=== PATIENT | female | born 1990 | race Two or more races ===

== ENCOUNTER → 2016-10-27 | Outpatient (REF) | payer BC | LOC: M SFHCWAGY 09:28 | PROVIDERS: ATTEND Nurse Practitioner Women's Health | DX: Z12.4 Encounter for screening for malignant neoplasm of cervix (principal) ==

== ENCOUNTER → 2017-01-27 | Outpatient (CLI) | payer BC ==
--- NOTE | 2017-01-27 15:07 | REP ---
Clinical: Menorrhagia and breakthrough bleeding on oral contraception. Technique: Transabdominal pelvic ultrasound followed by transvaginal examination for better evaluation of the endometrium and adnexa with color Doppler evaluation of the ovaries. Findings: Bladder is unremarkable and measures 3.9 x 6.6 x 1.6 cm . Normal anteverted uterus deviated to the right measures 6.9 x 2.7 x 3.5 cm . The endometrial complex measures 3.0 mm thickness. No discrete uterine or endometrial abnormalities are appreciated. Bilateral ovaries are normal in appearance and vascularity without evidence for torsion. Right ovary measures 3.2 x 1.9 x 1.6 cm ; R I = 0.54 . Left ovary measures 3.1 x 1.7 x 1.8 cm ; R I = 0.54 . No pelvic fluid or adnexal mass lesion . Impression: 1. normal pelvic ultrasound
== END ==
LOC: M WHC 13:58
PROVIDERS: ATTEND Nurse Practitioner Women's Health
DX: N92.1 Excessive and frequent menstruation with irregular cycle (principal)

== ENCOUNTER → 2017-07-14 | Outpatient (REF) | payer BC ==
[2017-07-14 19:06] LABS: TESTOSTERONE 38 NG/DL (14-76)
== END ==
LOC: M LAB REF 16:52
DX: E28.2 Polycystic ovarian syndrome (principal)
CPT/HCPCS: 84403

== ENCOUNTER → 2018-07-18 | Outpatient (REF) | payer BC ==
[2018-07-18 20:44] LABS: INFLUENZA A AMPLIFICATION NEGATIVE (NEGATIVE); INFLUENZA B AMPLIFICATION NEGATIVE (NEGATIVE)
== END ==
LOC: M LAB REF 19:15
PROVIDERS: ATTEND Physician Assistant
DX: J11.1 Influenza due to unidentified influenza virus with other respiratory manifestations (principal)

== ENCOUNTER → 2019-02-25 | Outpatient (REF) | payer BC ==
[2019-02-25 12:53] LABS: HEMOGLOBIN A1c 5.8 %
[2019-02-25 13:09] LABS: ALBUMIN 3.5 GM/DL (3.2-5.2); ALT/SGPT 41 U/L (12-78); BILIRUBIN,TOTAL 0.2 MG/DL (0.2-1.0); BLOOD UREA NITROGEN 14 MG/DL (7-18); CARBON DIOXIDE LEVEL 24 MEQ/L (21-32); CHLORIDE LEVEL 102 MEQ/L (98-107); CHOLESTEROL LEVEL 207 MG/DL (<200); CHOLESTEROL RISK RATIO 3.184 (<5); CREATININE FOR GFR 0.76 MG/DL (0.55-1.30); GLOMERULAR FILTRATION RATE > 60.0 (>60); GLUCOSE, FASTING 83 MG/DL (70-100); HCG, SERUM QUALITATIVE NEGATIVE (NEGATIVE); HDL CHOLESTEROL 65 MG/DL (>40); LDL CHOLESTEROL 114 MG/DL (<100); NON-HDL-C 142 MG/DL; POTASSIUM SERUM 4.7 MEQ/L (3.5-5.1); SODIUM LEVEL 135 MEQ/L (136-145); TOTAL PROTEIN 7.8 GM/DL (6.4-8.2); TRIGLYCERIDES LEVEL 138 MG/DL (<150)
== END ==
LOC: M LABDRAW1 11:41
PROVIDERS: ATTEND Student in an Organized Health Care Education/Training Program
DX: F34.1 Dysthymic disorder (principal); F41.1 Generalized anxiety disorder

== ENCOUNTER → 2019-04-18 | Outpatient (REF) | payer BC | LOC: M PLALAB 09:08 | PROVIDERS: ATTEND Nurse Practitioner Women's Health | DX: Z12.4 Encounter for screening for malignant neoplasm of cervix (principal) | CPT/HCPCS: 87624; G0123 ==

== ENCOUNTER → 2019-04-24 | Outpatient (CLI) | payer BC ==
--- NOTE | 2019-04-24 19:20 | REP ---
PELVIS ULTRASOUND: Real-time sonographic evaluation of the pelvis performed. Transabdominal and endovaginal technique is utilized. The bladder measures 9.4 x 5.1 x 7.8 cm. Uterus measures 6.6 x 2.5 x 4.0 cm. Endometrial thickness is 3 mm. There appears to be an anterior uterine fibroid, 7 mm in diameter. Ovaries are normal in size and echotexture, right ovary measuring 3.0 x 2.0 x 1.7 cm and left ovary 2.4 x 2.0 x 1.8 cm. There is no adnexal mass or free fluid. No torsion is seen, with blood flow seen in each ovary with duplex Doppler evaluation. IMPRESSION: Subcentimeter fibroid in the anterior myometrium. Otherwise negative pelvic ultrasound. No adnexal mass or free fluid. Unreviewed
== END ==
LOC: M RAD 17:32
PROVIDERS: ATTEND Nurse Practitioner Women's Health
DX: D25.9 Leiomyoma of uterus, unspecified (principal)

== ENCOUNTER → 2020-02-03 | Outpatient (CLI) | payer BC ==
[~2020-02-03] MED LIST: ALBU8.5H; BRIN10TA4; METF500T13; PRAM1TAB7
[2020-02-03 16:04] LABS: HEMOGLOBIN A1c 6.3 %
== END ==
LOC: M PLALAB 10:09
PROVIDERS: ATTEND Obstetrics & Gynecology
DX: N97.9 Female infertility, unspecified (principal)

== ENCOUNTER → 2020-02-12 | Outpatient (CLI) | payer BC ==
[~2020-02-12] MED LIST changes: +ISOVUE-370 76% 100ML VIAL As Ordered ONE
--- NOTE | 2020-02-19 07:49 | REP ---
HYSTEROSALPINGOGRAM The procedure was performed by CLARENCE Alcantara, with the attending energy analyst, under the direct supervision of Dr. Jacobs. Images were reviewed with Dr. Jacobs prior to dictation. FINDINGS: The endometrium was cannulated, and contrast was injected by the attending energy analyst. Fluoroscopic spot films were acquired along the way. Fluoroscopic spot radiographs document filling of a normal endometrial cavity. There is normal fallopian tube opacification, and bilateral tube patency was documented. IMPRESSION: Normal hysterosalpingogram with bilateral tubal patency. 0.2 minutes of fluoroscopy time was utilized for this exam. DAGOBERTO
== END ==
LOC: M RADPRO 11:24
PROVIDERS: ATTEND Obstetrics & Gynecology
DX: N97.9 Female infertility, unspecified (principal); E28.2 Polycystic ovarian syndrome
CPT/HCPCS: 58340; 74740; Q9967

== ENCOUNTER 2020-02-14 12:05 | Emergency (ER) | payer BC ==
[~2020-02-14] VITALS: Ht 160 cm; Wt 127.3 kg
[2020-02-14] MEDS ORDERED: ALBU8.5H (12:30)
[2020-02-14] MEDS ORDERED: PRAM1TAB7 (12:30)
[2020-02-14] MEDS ORDERED: METF500T13 (12:30)
[2020-02-14] MEDS ORDERED: BRIN10TA4 (12:30)
[2020-02-14] MEDS ORDERED: IBUPROFEN 600MG TAB PO ONE (13:00)
--- NOTE | 2020-02-14 13:58 | REPVR ---
PROCEDURE INFORMATION: Exam: XR Right Ankle Exam date and time: 02/14/2020 12:31 PM Age: 29 years old Clinical indication: Pain; Ankle; Right; Prior surgery; Surgery date: 6+ months; Additional info: Trauma TECHNIQUE: Imaging protocol: XR Right ankle. Views: 3 or more views. COMPARISON: CR Ankle, complete RIGHT 11/08/2015 1:12 PM FINDINGS: Bones/joints: There is again hardware in the distal fibula. It appears stable. An acute, mildly displaced fracture is present along the posteromedial aspect of the distal tibia, extending to the upper lateral margin of the medial malleolus. No other fracture is identified. The joint spaces are normally aligned. Soft tissues: There is some soft tissue swelling. IMPRESSION: Postoperative ankle with acute, mildly displaced distal tibial fracture. Electronically signed by: Terrell Valdez On 02/14/2020 13:57:49 PM
--- NOTE | 2020-02-14 13:59 | REPVR ---
PROCEDURE INFORMATION: Exam: XR Right Foot Complete Exam date and time: 02/14/2020 12:56 PM Age: 29 years old Clinical indication: Pain; Foot; Right; Additional info: Fall with twist and pain TECHNIQUE: Imaging protocol: XR Right foot. Views: 3 or more views. COMPARISON: CR Foot, complete RIGHT 11/08/2015 1:12 PM FINDINGS: Bones/joints: Hardware is again present in the distal fibula, partially visualized. No acute fracture or dislocation is identified in the foot. Acute distal tibial fracture is described with separately reported ankle radiographs. Soft tissues: The soft tissues of the foot appear grossly unremarkable. IMPRESSION: No acute fracture or dislocation of the foot identified. See separate ankle radiograph report for findings of distal tibial fracture. Electronically signed by: Terrell Valdez On 02/14/2020 13:59:01 PM
[2020-02-14 15:13] VITALS: BP 120/80
== END 2020-02-14 15:15 | disposition home or self-care (01) ==
LOC: M ED 12:05
DX: S82.301A Unspecified fracture of lower end of right tibia, initial encounter for closed fracture (principal); Y92.9 Unspecified place or not applicable; Y93.01 Activity, walking, marching and hiking; Y99.9 Unspecified external cause status; Z79.51 Long term (current) use of inhaled steroids; Z79.84 Long term (current) use of oral hypoglycemic drugs; Z79.899 Other long term (current) drug therapy

== ENCOUNTER → 2020-02-20 | Outpatient (CLI) | payer BC ==
[~2020-02-20] MED LIST changes: -ISOVUE-370 76% 100ML VIAL As Ordered ONE
[2020-02-20 11:59] LABS: BASO # 0.1 10^3/uL (0.0-0.2); BASO % 0.6 % (0.0-1.0); EOS # 0.4 10^3/uL (0.0-0.5); EOS % 4.7 % (0.0-3.0); HEMATOCRIT 41.2 % (36.0-47.0); HEMOGLOBIN 13.2 g/dl (12.0-15.5); LYMPH # 2.5 10^3/uL (1.5-5.0); LYMPH % 28.3 % (24.0-44.0); MEAN CORPUSCULAR HEMOGLOBIN 29.5 pg (27.0-33.0); MONO # 0.3 10^3/uL (0.0-0.8); MONO % 3.8 % (0.0-5.0); NEUTROPHILS # 5.4 10^3/uL (1.5-8.5); NEUTROPHILS % 62.4 % (36.0-66.0); PLATELET COUNT, AUTOMATED 396 10^3/uL (150-450); RED BLOOD COUNT 4.48 10^6/uL (4.00-5.40); WHITE BLOOD COUNT 8.7 10^3/uL (4.0-10.0)
[2020-02-20 12:08] LABS: INR 0.9; PROTHROMBIN TIME 12.3 SECONDS (12.5-14.3)
[2020-02-20 12:09] LABS: PARTIAL THROMBOPLASTIN TIME 29.1 SECONDS (24.2-38.5)
[2020-02-20 12:31] LABS: ALBUMIN 3.8 GM/DL (3.2-5.2); ALT/SGPT 112 U/L (12-78); BILIRUBIN,DIRECT 0.2 MG/DL (0.0-0.2); BILIRUBIN,TOTAL 0.6 MG/DL (0.2-1.0); BLOOD UREA NITROGEN 14 MG/DL (7-18); CALCIUM LEVEL 9.2 MG/DL (8.5-10.1); CARBON DIOXIDE LEVEL 28 MEQ/L (21-32); CHLORIDE LEVEL 103 MEQ/L (98-107); GLOMERULAR FILTRATION RATE > 60.0 (>60); GLUCOSE, FASTING 96 MG/DL (70-100); POTASSIUM SERUM 4.2 MEQ/L (3.5-5.1); SODIUM LEVEL 136 MEQ/L (136-145); TOTAL PROTEIN 7.8 GM/DL (6.4-8.2)
== END ==
LOC: M LAB 11:09
PROVIDERS: ATTEND Family Medicine
DX: M25.571 Pain in right ankle and joints of right foot (principal)

== ENCOUNTER → 2020-08-20 | Outpatient (REF) | payer BC ==
[2020-08-20 17:34] LABS: BASO % 0.4 % (0.0-1.0); EOS # 0.6 10^3/uL (0.0-0.5); EOS % 5.1 % (0.0-3.0); HEMATOCRIT 39.8 % (36.0-47.0); HEMOGLOBIN 12.3 g/dl (12.0-15.5); LYMPH # 3.5 10^3/uL (1.5-5.0); LYMPH % 31.2 % (24.0-44.0); MEAN CORPUSCULAR HEMOGLOBIN 27.5 pg (27.0-33.0); MEAN CORPUSCULAR HGB CONC 30.9 g/dl (32.0-36.5); MEAN CORPUSCULAR VOLUME 88.8 fl (80.0-96.0); MONO # 0.5 10^3/uL (0.0-0.8); MONO % 4.5 % (2.0-8.0); NEUTROPHILS # 6.5 10^3/uL (1.5-8.5); NEUTROPHILS % 58.3 % (36.0-66.0); PLATELET COUNT, AUTOMATED 548 10^3/uL (150-450); RED BLOOD COUNT 4.48 10^6/uL (4.00-5.40); WHITE BLOOD COUNT 11.1 10^3/uL (4.0-10.0)
[2020-08-20 17:39] LABS: ALT/SGPT 223 U/L (12-78); BILIRUBIN,TOTAL 0.4 MG/DL (0.2-1.0); BLOOD UREA NITROGEN 11 MG/DL (7-18); CALCIUM LEVEL 10.2 MG/DL (8.5-10.1); CARBON DIOXIDE LEVEL 28 MEQ/L (21-32); CHLORIDE LEVEL 101 MEQ/L (98-107); CHOLESTEROL LEVEL 231 MG/DL (<200); CREATININE FOR GFR 0.68 MG/DL (0.55-1.30); GLOMERULAR FILTRATION RATE > 60.0 (>60); GLUCOSE, FASTING 129 MG/DL (70-100); GLUCOSE,RANDOM 129 MG/DL (LESS THAN 200); HDL CHOLESTEROL 44 MG/DL (>40); LDL CHOLESTEROL 157 MG/DL (<100); NON-HDL-C 187 MG/DL; SODIUM LEVEL 135 MEQ/L (136-145); TOTAL PROTEIN 8.1 GM/DL (6.4-8.2); TRIGLYCERIDES LEVEL 151 MG/DL (<150)
[2020-08-20 18:03] LABS: HEMOGLOBIN A1c 6.8 %
[2020-08-25 12:21] LABS: AMYLASE 48 U/L (25-115); LIPASE 103 U/L (73-393)
[2020-08-25 12:42] LABS: HEPATITIS B SURFACE ANTIGEN NEGATIVE (NEGATIVE)
[2020-08-25 13:09] LABS: HEPATITIS B CORE ANTIBODY IGM NEGATIVE (NEGATIVE); HEPATITIS C VIRUS ABY INDEX 0.1 INDEX (<0.8)
[2020-08-25 13:12] LABS: HEPATITIS A ANTIBODY IGM NEGATIVE (NEGATIVE)
== END ==
LOC: M LABDRWAD 16:23 → M LABDRAWC 16:23
PROVIDERS: ATTEND Family Medicine
DX: K76.89 Other specified diseases of liver (principal); L83 Acanthosis nigricans

== ENCOUNTER → 2020-09-07 | Outpatient (REF) | payer BC | LOC: M PLALAB 11:51 | PROVIDERS: ATTEND Obstetrics & Gynecology | DX: N97.0 Female infertility associated with anovulation (principal) ==

== ENCOUNTER 2020-10-13 17:10 | Emergency (ER) | payer BC ==
[~2020-10-13] VITALS: Ht 160 cm; Wt 127.0 kg
[~2020-10-13 17:10] MED LIST changes: -ALBU8.5H; +ALBU8.5H INH; -BRIN10TA4; +BRIN10TA4 PO; -PRAM1TAB7; +PRAM1TAB7 PO
[2020-10-13] MEDS ORDERED: FERR325T3 PO (18:59)
[2020-10-13] MEDS ORDERED: METF850T4 PO (18:59)
[2020-10-13] MEDS ORDERED: CLOM50TA9 PO (18:59)
[2020-10-13 19:01] LABS: HEMATOCRIT 37.8 % (36.0-47.0); HEMOGLOBIN 11.4 g/dl (12.0-15.5); MEAN CORPUSCULAR HEMOGLOBIN 25.8 pg (27.0-33.0); MEAN CORPUSCULAR HGB CONC 30.2 g/dl (32.0-36.5); MEAN CORPUSCULAR VOLUME 85.5 fl (80.0-96.0); PLATELET COUNT, AUTOMATED 546 10^3/uL (150-450); RED BLOOD COUNT 4.42 10^6/uL (4.00-5.40); WHITE BLOOD COUNT 11.1 10^3/uL (4.0-10.0)
[2020-10-13 19:33] LABS: AMPHETAMINES LEVEL URINE NEGATIVE (NEGATIVE); BARBITURATES URINE NEGATIVE (NEGATIVE); BENZODIAZEPINES URINE NEGATIVE (NEGATIVE); CANNABINOIDS URINE NEGATIVE (NEGATIVE); COCAINE METABOLITE URINE NEGATIVE (NEGATIVE); METHADONE URINE NEGATIVE (NEGATIVE); OPIATES URINE NEGATIVE (NEGATIVE); PHENCYCLIDINE URINE NEGATIVE (NEGATIVE)
[2020-10-13 19:43] LABS: ACETAMINOPHEN LEVEL < 2.0 UG/ML (10.0-30.0); ALBUMIN 3.9 GM/DL (3.2-5.2); ALT/SGPT 193 U/L (12-78); BILIRUBIN,DIRECT 0.1 MG/DL (0.0-0.2); BILIRUBIN,TOTAL 0.3 MG/DL (0.2-1.0); BLOOD UREA NITROGEN 10 MG/DL (7-18); CALCIUM LEVEL 9.6 MG/DL (8.5-10.1); CARBON DIOXIDE LEVEL 28 MEQ/L (21-32); CHLORIDE LEVEL 100 MEQ/L (98-107); CREATININE FOR GFR 0.71 MG/DL (0.55-1.30); ETHYL ALCOHOL (ETHANOL) < 0.003 % (0.000-0.010); GLOMERULAR FILTRATION RATE > 60.0 (>60); GLUCOSE, FASTING 271 MG/DL (70-100); POTASSIUM SERUM 3.9 MEQ/L (3.5-5.1); SALICYLATE LEVEL < 1.7 MG/DL (5.0-30.0); SODIUM LEVEL 137 MEQ/L (136-145); TOTAL PROTEIN 8.6 GM/DL (6.4-8.2)
[2020-10-13 19:47] LABS: HCG, SERUM QUALITATIVE NEGATIVE (NEGATIVE)
[2020-10-13 23:11] VITALS: BP 171/97
== END 2020-10-13 23:23 | disposition home or self-care (01) ==
LOC: M ED 17:10
DX: F32.9 Major depressive disorder, single episode, unspecified (principal); F41.9 Anxiety disorder, unspecified; R73.03 Prediabetes; J45.909 Unspecified asthma, uncomplicated; E28.2 Polycystic ovarian syndrome; Z87.820 Personal history of traumatic brain injury; Z79.899 Other long term (current) drug therapy; Z79.84 Long term (current) use of oral hypoglycemic drugs

== ENCOUNTER → 2021-08-24 | Outpatient (REF) | payer BC ==
[~2021-08-24] MED LIST changes: +CLOM50TA9 PO; +FERR325T3 PO; +METF850T4 PO
[2021-08-24 16:30] LABS: PERCENT SATURATION 7.7 % (13.2-45.0)
== END ==
LOC: M LABDRAWC 15:47
PROVIDERS: ATTEND Psychiatry & Neurology Psychiatry
DX: F41.1 Generalized anxiety disorder (principal); F33.1 Major depressive disorder, recurrent, moderate

== ENCOUNTER → 2022-10-11 | Outpatient (REF) | payer BC ==
[2022-10-11 12:35] LABS: BASO # 0.1 10^3/uL (0.0-0.2); BASO % 0.7 % (0.0-1.0); EOS # 0.9 10^3/uL (0.0-0.5); EOS % 9.1 % (0.0-3.0); HEMATOCRIT 33.9 % (36.0-47.0); HEMOGLOBIN 9.5 g/dl (12.0-15.5); LYMPH # 2.7 10^3/uL (1.5-5.0); LYMPH % 26.6 % (24.0-44.0); MEAN CORPUSCULAR HEMOGLOBIN 20.9 pg (27.0-33.0); MEAN CORPUSCULAR VOLUME 74.5 fl (80.0-96.0); MONO # 0.4 10^3/uL (0.0-0.8); MONO % 4.3 % (2.0-8.0); NEUTROPHILS % 58.9 % (36.0-66.0); PLATELET COUNT, AUTOMATED 489 10^3/uL (150-450); RED BLOOD COUNT 4.55 10^6/uL (4.00-5.40); WHITE BLOOD COUNT 10.1 10^3/uL (4.0-10.0)
[2022-10-11 13:03] LABS: HEMOGLOBIN A1c 5.1 % (4.0-6.0)
[2022-10-11 13:13] LABS: ALBUMIN 3.8 G/DL (3.2-5.2); ALKALINE PHOSPHATASE 60 U/L (46-116); ALT/SGPT 16 U/L (7.0-40); AST/SGOT 18 U/L (<34); BILIRUBIN,TOTAL 0.2 MG/DL (0.3-1.2); BLOOD UREA NITROGEN 7 MG/DL (9-23); CALCIUM LEVEL 9.1 MG/DL (8.5-10.1); CARBON DIOXIDE LEVEL 24 MMOL/L (20-31); CHLORIDE LEVEL 104 MMOL/L (98-107); CREATININE FOR GFR 0.75 MG/DL (0.55-1.30); GLOMERULAR FILTRATION RATE > 60.0 (>60); GLUCOSE, FASTING 79 MG/DL (60-100); POTASSIUM SERUM 3.8 MMOL/L (3.5-5.1); PROLACTIN 14.05 NG/ML; SODIUM LEVEL 138 MMOL/L (136-145); TESTOSTERONE 29 NG/DL (14-76); TOTAL 25(OH) VITAMIN D 9.9 NG/ML (20.0-100.0); TOTAL PROTEIN 7.2 G/DL (5.7-8.2)
[2022-10-11 13:32] LABS: HEPATITIS B SURFACE ANTIGEN NEGATIVE (NEGATIVE)
[2022-10-11 13:44] LABS: HIV 1&2 SCREEN NEGATIVE (NEGATIVE)
[2022-10-11 13:52] LABS: HEPATITIS C VIRUS ABY INDEX 0.1 INDEX (<0.8)
[2022-10-12 16:08] LABS: HERPES ZOSTER, VARICELLA IgG 683 index (Immune >165); HERPES ZOSTER, VARICELLA IgM <0.91 index (0.00-0.90)
[2022-10-15 18:10] LABS: ANTI MULLERIAN HORMONE 11.2 ng/mL (.)
[2022-10-15 19:14] LABS: 17 HYDROXY PROGESTERONE 26 ng/dL (.)
== END ==
LOC: M LABDRWAD 11:34
PROVIDERS: ATTEND Obstetrics & Gynecology Reproductive Endocrinology
DX: Z31.41 Encounter for fertility testing (principal)

== ENCOUNTER → 2022-11-11 | Outpatient (REF) | payer BC ==
[2022-11-11 17:53] LABS: ALBUMIN 3.8 G/DL (3.2-5.2); ALKALINE PHOSPHATASE 62 U/L (46-116); ALT/SGPT 11 U/L (7.0-40); AST/SGOT < 8 U/L (<34); BILIRUBIN,TOTAL 0.3 MG/DL (0.3-1.2); BLOOD UREA NITROGEN 10 MG/DL (9-23); CALCIUM LEVEL 9.9 MG/DL (8.5-10.1); CARBON DIOXIDE LEVEL 26 MMOL/L (20-31); CHLORIDE LEVEL 103 MMOL/L (98-107); CREATININE FOR GFR 0.75 MG/DL (0.55-1.30); GLOMERULAR FILTRATION RATE > 60.0 (>60); GLUCOSE, FASTING 82 MG/DL (60-100); POTASSIUM SERUM 4.3 MMOL/L (3.5-5.1); SODIUM LEVEL 138 MMOL/L (136-145); TOTAL PROTEIN 7.3 G/DL (5.7-8.2)
[2022-11-11 17:54] LABS: THYROID STIMULATING HORMONE 1.385 uIU/ML (0.55-4.78)
[2022-11-11 17:55] LABS: TESTOSTERONE 26 NG/DL (14-76)
[2022-11-11 18:25] LABS: HIV 1&2 SCREEN NEGATIVE (NEGATIVE)
== END ==
LOC: M LABDRAWC 16:46
PROVIDERS: ATTEND Obstetrics & Gynecology Reproductive Endocrinology
DX: Z31.41 Encounter for fertility testing (principal)

== ENCOUNTER → 2022-11-29 | Outpatient (REF) | payer BC | LOC: M LABDRAWC 11:28 | PROVIDERS: ATTEND Obstetrics & Gynecology Reproductive Endocrinology | DX: Z31.41 Encounter for fertility testing (principal) ==

== ENCOUNTER → 2023-01-30 | Outpatient (CLI) | payer BC ==
[2023-01-30 09:56] LABS: HCG, SERUM QUANTITATIVE < 2.6 MIU/ML (<4.2)
[2023-01-30 10:00] LABS: PROGESTERONE 33.27 NG/ML
== END ==
LOC: M LAB 08:23
PROVIDERS: ATTEND Obstetrics & Gynecology Reproductive Endocrinology
DX: Z32.00 Encounter for pregnancy test, result unknown (principal)

== ENCOUNTER → 2023-02-28 | Outpatient (REF) | payer BC ==
[2023-02-28 12:27] LABS: ESTRADIOL 623.7 PG/ML; PROGESTERONE 36.62 NG/ML
== END ==
LOC: M LABDRAWC 11:19
PROVIDERS: ATTEND Obstetrics & Gynecology Reproductive Endocrinology
DX: Z31.49 Encounter for other procreative investigation and testing (principal)

== ENCOUNTER → 2023-03-06 | Outpatient (CLI) | payer BC ==
[2023-03-06 22:20] LABS: HCG, SERUM QUANTITATIVE 82.7 MIU/ML (<4.2)
[2023-03-06 22:24] LABS: ESTRADIOL 2032.1 PG/ML
[2023-03-06 22:26] LABS: PROGESTERONE 24.28 NG/ML
== END ==
LOC: M LAB 08:33
PROVIDERS: ATTEND Obstetrics & Gynecology Reproductive Endocrinology
DX: Z32.00 Encounter for pregnancy test, result unknown (principal)

== ENCOUNTER → 2023-03-08 | Outpatient (CLI) | payer BC ==
[2023-03-08 08:28] LABS: HCG, SERUM QUANTITATIVE 172.2 MIU/ML (<4.2)
[2023-03-08 08:32] LABS: THYROID STIMULATING HORMONE 1.663 uIU/ML (0.55-4.78)
[2023-03-08 08:33] LABS: ESTRADIOL 461.9 PG/ML; PROGESTERONE 31.81 NG/ML
== END ==
LOC: M LAB 07:23
PROVIDERS: ATTEND Obstetrics & Gynecology Reproductive Endocrinology
DX: Z32.01 Encounter for pregnancy test, result positive (principal)

== ENCOUNTER → 2023-03-10 | Outpatient (CLI) | payer BC ==
[2023-03-10 08:20] LABS: HCG, SERUM QUANTITATIVE 435.5 MIU/ML (<4.2)
[2023-03-10 08:24] LABS: PROGESTERONE 21.16 NG/ML
[2023-03-10 08:25] LABS: ESTRADIOL 400.2 PG/ML
== END ==
LOC: M LAB 07:31
PROVIDERS: ATTEND Obstetrics & Gynecology Reproductive Endocrinology
DX: O09.00 Supervision of pregnancy with history of infertility, unspecified trimester (principal)

== ENCOUNTER → 2023-04-21 | Outpatient (REF) | payer BC ==
[2023-04-21 12:56] LABS: HEMATOCRIT 35.1 % (36.0-47.0); HEMOGLOBIN 11.2 g/dl (12.0-15.5); MEAN CORPUSCULAR HEMOGLOBIN 26.7 pg (27.0-33.0); MEAN CORPUSCULAR HGB CONC 31.9 g/dl (32.0-36.5); MEAN CORPUSCULAR VOLUME 83.6 fl (80.0-96.0); PLATELET COUNT, AUTOMATED 489 10^3/uL (150-450); WHITE BLOOD COUNT 13.7 10^3/uL (4.0-10.0)
[2023-04-21 13:39] LABS: HIV 1&2 SCREEN NEGATIVE (NEGATIVE)
[2023-04-21 15:06] LABS: CHLAMYDIA DNA AMPLIFICATION NEGATIVE (NEGATIVE); GC DNA AMPLIFICATION NEGATIVE (NEGATIVE)
== END ==
LOC: M PLALAB 07:49
PROVIDERS: ATTEND Specialist
DX: Z34.02 Encounter for supervision of normal first pregnancy, second trimester (principal)

== ENCOUNTER → 2023-06-19 | Outpatient (REF) | payer BC ==
[2023-06-19 10:42] LABS: TOTAL PROTEIN,RANDOM URINE 36.8 MG/DL (0.0-14.0)
[2023-06-19 10:47] LABS: CREATININE,RANDOM URINE 232.6 MG/DL
== END ==
LOC: M PLALAB 08:41
PROVIDERS: ATTEND Obstetrics & Gynecology
DX: O10.919 Unspecified pre-existing hypertension complicating pregnancy, unspecified trimester (principal)

== ENCOUNTER → 2023-06-27 | Outpatient (CLI) | payer BC | LOC: M WHC 07:28 | PROVIDERS: ATTEND Specialist | DX: Z34.92 Encounter for supervision of normal pregnancy, unspecified, second trimester (principal); Z3A.20 20 weeks gestation of pregnancy ==

== ENCOUNTER → 2023-07-27 | Outpatient (CLI) | payer BC ==
[2023-07-27 14:27] LABS: HEMATOCRIT 35.7 % (36.0-47.0); HEMOGLOBIN 11.6 g/dl (12.0-15.5); MEAN CORPUSCULAR HEMOGLOBIN 28.4 pg (27.0-33.0); MEAN CORPUSCULAR HGB CONC 32.5 g/dl (32.0-36.5); MEAN CORPUSCULAR VOLUME 87.5 fl (80.0-96.0); PLATELET COUNT, AUTOMATED 351 10^3/uL (150-450); RED BLOOD COUNT 4.08 10^6/uL (4.00-5.40); WHITE BLOOD COUNT 13.8 10^3/uL (4.0-10.0)
[2023-07-27 15:57] LABS: GC DNA AMPLIFICATION NEGATIVE (NEGATIVE)
== END ==
LOC: M PLALAB 08:57
PROVIDERS: ATTEND Specialist
DX: Z34.02 Encounter for supervision of normal first pregnancy, second trimester (principal)

== ENCOUNTER → 2023-08-02 | Outpatient (CLI) | payer BC | LOC: M LAB 07:23 | PROVIDERS: ATTEND Specialist | DX: Z34.82 Encounter for supervision of other normal pregnancy, second trimester (principal) ==

== ENCOUNTER → 2023-08-17 | Outpatient (REF) | payer BC | LOC: M SFHCWAGY 10:20 | PROVIDERS: ATTEND Advanced Practice Midwife | DX: R09.81 Nasal congestion (principal) ==

== ENCOUNTER → 2023-09-15 | Outpatient (CLI) | payer BC | LOC: M RAD 07:01 | PROVIDERS: ATTEND Advanced Practice Midwife | DX: O10.012 Pre-existing essential hypertension complicating pregnancy, second trimester (principal) ==

== ENCOUNTER → 2023-10-12 | Outpatient (REF) | payer BC | LOC: M PLALAB 13:24 | PROVIDERS: ATTEND Advanced Practice Midwife | DX: O24.414 Gestational diabetes mellitus in pregnancy, insulin controlled (principal); Z36.85 Encounter for antenatal screening for Streptococcus B; Z3A.00 Weeks of gestation of pregnancy not specified ==

== ENCOUNTER → 2023-10-17 | Outpatient (CLI) | payer BC, SELFPAY | LOC: M WHC 07:17 | PROVIDERS: ATTEND Advanced Practice Midwife | DX: O10.012 Pre-existing essential hypertension complicating pregnancy, second trimester (principal) ==

== ENCOUNTER 2023-10-26 06:31 | Inpatient (IN) | payer BC ==
[2023-10-26] VITALS (10 sets, daily range): BP systolic 119–145; BP diastolic 66–82; TEMP 98.6; O2SAT 96–98
[~2023-10-26] VITALS: Ht 160 cm; Wt 122.0 kg
[~2023-10-26 06:31] MED LIST changes: +BENA25CA4 PO; +DEXT1TAB19 PO; +IRON65TA2 PO; +LABE100T6 PO; +METF-838 PO; +MULTTAB20 PO; +OMEP-173 PO; +PRAZ2CAP PO; +VILO200C PO
[2023-10-26] MEDS ORDERED: OXYTOCIN DRIP 30 UNITS in IV 1 EA IV PRN (07:20)
[2023-10-26] MEDS ORDERED: ceFAZolin SOD 3 GM IV Place Holder IV ONE (07:20)
[2023-10-26] MEDS ORDERED: TRANEXAMIC ACID INJection 1,000 MG in NS 100 ML IV PRN (07:20)
[2023-10-26] MEDS ORDERED: CARBOPROST TROMETHAMINE 250 MCG/ML AMP IM PRN (07:20)
[2023-10-26] MEDS ORDERED: OXYTOCIN INJ 10UNITS/ML 1ML VIAL IM PRN (07:20)
[2023-10-26] MEDS ORDERED: METHYLERGONOVINE MALEATE 0.2MG/ML 1ML VIAL IM PRN (07:20)
[2023-10-26] MEDS: LACTATED RINGER'S 1000 ML IV STA (07:42)
[2023-10-26 07:55] LABS: HEMATOCRIT 35.8 % (36.0-47.0); HEMOGLOBIN 11.7 g/dl (12.0-15.5); MEAN CORPUSCULAR HEMOGLOBIN 28.6 pg (27.0-33.0); MEAN CORPUSCULAR HGB CONC 32.7 g/dl (32.0-36.5); MEAN CORPUSCULAR VOLUME 87.5 fl (80.0-96.0); PLATELET COUNT, AUTOMATED 264 10^3/uL (150-450); RED BLOOD COUNT 4.09 10^6/uL (4.00-5.40); WHITE BLOOD COUNT 11.9 10^3/uL (4.0-10.0)
[2023-10-26] MEDS: BICITRA 30ML SOLN UDC PO ONE (08:14)
[2023-10-26] MEDS: ceFAZolin SOD 1 GM in D5W MINI-BAG PLUS 50 ML IV ONE (08:14)
[2023-10-26] MEDS: ceFAZolin SOD 2 GM in IV 1 EA IV ONE (08:14)
[2023-10-26] MEDS: LR 1,000 ML IV SCH ×2 (08:37→11:00)
[2023-10-26] MEDS ORDERED: MORPHINE PRES-FREE INJ 10 MG/10 ML VIAL As Ordered ONE (08:53)
[2023-10-26] MEDS: PRENATAL VITAMINS CHEWABLE TABLET PO SCH (09:00)
[2023-10-26] MEDS ORDERED: OXYTOCIN 30UNITS IN 0.9% NaCl 500ML IV BAG As Ordered ONE (09:00)
[2023-10-26] MEDS ORDERED: KETOROLAC 60MG 2ML VIAL As Ordered ONE (09:00)
[2023-10-26] MEDS ORDERED: ONDANSETRON 4MG 2ML VIAL As Ordered ONE (09:01)
[2023-10-26] MEDS ORDERED: ACETAMINOPHEN 1000MG 100ML IV BAG As Ordered ONE (09:01)
[2023-10-26] MEDS ORDERED: PHENYLephrine 500MCG 5ML (100MCG/ML) SYRINGE As Ordered ONE (09:03)
[2023-10-26 09:04] LABS: HEPATITIS C VIRUS ABY INDEX < 0.02 INDEX (<0.8)
[2023-10-26] MEDS ORDERED: ePHEDrine SULFATE 25 MG/5 ML(5MG/ML) SYRINGE As Ordered ONE (09:09)
[2023-10-26] MEDS ORDERED: GLUCOSE 4 GM CHEW PO PRN (10:15)
[2023-10-26] MEDS ORDERED: RHO(D) IMMUNE GLOBULIN/MALTOSE 500MCG(2500IU)/2.2ML VIAL (WINRHO) IM SCH (10:15)
[2023-10-26] MEDS ORDERED: METOCLOPRAMIDE INJ 10MG/2ML VIAL IV PRN ×2 (10:15→11:00)
[2023-10-26] MEDS ORDERED: DEXTROSE 50% 50ML SYRINGE IV PRN (10:15)
[2023-10-26] MEDS ORDERED: GLUCAGON INJ 1MG VIAL SC PRN (10:15)
[2023-10-26] MEDS ORDERED: SIMETHICONE 80MG CHEW TAB PO PRN (10:15)
[2023-10-26] MEDS: OXYTOCIN DRIP 30 UNITS in IV 1 EA IV SCH (10:15)
[2023-10-26] MEDS ORDERED: **NOTE PATIENT COMMENT** MISC XX SCH (11:00)
[2023-10-26] MEDS ORDERED: NALOXONE INJ 0.4MG/1ML VIAL IV PRN ×2 (11:00)
[2023-10-26] MEDS ORDERED: oxyCODONE 5MG TAB PO PRN (11:00)
[2023-10-26] MEDS ORDERED: fentaNYL 100 MCG/2 ML INJECTION IV PRN (11:00)
[2023-10-26] MEDS ORDERED: ONDANSETRON 4MG 2ML VIAL IV PRN (11:00)
[2023-10-26] MEDS ORDERED: diphenhydrAMINE 50MG/ML VIAL IV PRN (11:00)
[2023-10-26] MEDS ORDERED: LABETALOL 100MG TAB PO ONE (11:45)
[2023-10-26] MEDS: LABETALOL 100MG TAB PO SCH (11:52)
[2023-10-26] MEDS: INSULIN LISPRO (NovoLOG) PER UNIT SC SCH (12:00)
[2023-10-26] MEDS ORDERED: HUMULIN N SC (14:01)
[2023-10-26] MEDS ORDERED: ALBUTEROL 90 MCG/ACT 8GM HFA INHALER INH PRN (14:15)
[2023-10-26] MEDS ORDERED: HUMU1INJ2 SC (14:39)
[2023-10-26] MEDS ORDERED: ECOT81TA5 PO (14:42)
[2023-10-26] MEDS ORDERED: ASPI81CH33 PO (14:43)
[2023-10-26] MEDS: SLF 3 ML SYR IV SCH (15:00)
[2023-10-26] MEDS: ENOXAPARIN 40MG/0.4ML SYRINGE (J1650 PER 10MG) SC SCH (15:30)
[2023-10-26] MEDS: KETOROLAC 30 MG/ML 1ML VIAL IV SCH (15:30)
[2023-10-26] MEDS: ACETAMINOPHEN 500 MG TAB PO SCH (15:30)
[2023-10-26] MEDS: DOCUSATE SODIUM 100MG CAPSULE PO PRN (21:13)
[2023-10-26] MEDS: PRAZOSIN 1 MG CAP PO SCH (21:15)
[2023-10-26] MEDS ORDERED: COLA100C5 PO (22:38)
[2023-10-26] MEDS ORDERED: IBUP-1022 PO (22:38)
[2023-10-26] MEDS ORDERED: ACET-683 PO (22:38)
[2023-10-26] MEDS ORDERED: OXYC-517 PO (22:38)
[2023-10-27] VITALS (7 sets, daily range): BP systolic 115–169; BP diastolic 58–81; O2SAT 96–98
[2023-10-27] MEDS: oxyCODONE 5MG TAB PO PRN ×2 (06:02→14:49)
[2023-10-27] MEDS: [UNRECOGNIZED DRUG - OTHER] PO SCH (09:00)
[2023-10-27 09:38] LABS: HEMATOCRIT 31.6 % (36.0-47.0); HEMOGLOBIN 10.5 g/dl (12.0-15.5); MEAN CORPUSCULAR HEMOGLOBIN 29.2 pg (27.0-33.0); MEAN CORPUSCULAR HGB CONC 33.2 g/dl (32.0-36.5); MEAN CORPUSCULAR VOLUME 87.8 fl (80.0-96.0); PLATELET COUNT, AUTOMATED 233 10^3/uL (150-450); WHITE BLOOD COUNT 9.1 10^3/uL (4.0-10.0)
[2023-10-27] MEDS: IBUPROFEN 600MG TAB PO SCH (11:11)
[2023-10-27] MEDS: AUVELITY PO SCH (20:57)
[2023-10-28 02:00] VITALS: BP 132/66; O2SAT 96
[2023-10-28 06:00] VITALS: BP 132/62; O2SAT 95
[2023-10-28 09:00] VITALS: BP 172/91
[2023-10-28] MEDS: MEASLES,MUMPS,RUBELLA VACCINE INJ (MMR-II) SC.IMMUN ONE (09:00)
[2023-10-28 09:04] VITALS: BP 172/91
[2023-10-28 10:00] VITALS: BP 142/76
== END 2023-10-28 15:35 | disposition home or self-care (01) | DRG 540 ==
LOC: M LDI 06:31 → M OBS 12:39
PROVIDERS: ADMIT Obstetrics & Gynecology; ATTEND Obstetrics & Gynecology
PROC: 10D00Z1 Extraction of Products of Conception, Low, Open Approach (ICD-10-PCS; principal; 2023-10-26 08:30)
PROC: 0UB90ZZ Excision of Uterus, Open Approach (ICD-10-PCS; 2023-10-26 08:30)
DX: O32.1XX0 Maternal care for breech presentation, not applicable or unspecified (principal); O10.02 Pre-existing essential hypertension complicating childbirth; O24.424 Gestational diabetes mellitus in childbirth, insulin controlled; Z3A.37 37 weeks gestation of pregnancy; D25.2 Subserosal leiomyoma of uterus; O34.13 Maternal care for benign tumor of corpus uteri, third trimester; Z79.4 Long term (current) use of insulin; Z37.0 Single live birth

== ENCOUNTER 2024-01-17 08:55 | Emergency (ER) | payer BC, SELFPAY ==
[~2024-01-17] VITALS: Ht 160 cm; Wt 109.1 kg
[~2024-01-17 08:55] MED LIST changes: +ACET-683 PO; +ASPI81CH33 PO; +COLA100C5 PO; +ECOT81TA5 PO; +HUMU1INJ2 SC; +HUMULIN N SC; +IBUP-1022 PO; +OXYC-517 PO
[2024-01-17] MEDS: diazePAM 5MG TABLET PO ONE (09:48)
[2024-01-17] MEDS: ACETAMINOPHEN 325 MG TAB PO ONE (09:48)
[2024-01-17] MEDS: methylPREDNISolone 125MG 2ML VIAL IM ONE (09:49)
[2024-01-17] MEDS: LIDOCAINE 5% (LIDODERM) PATCH TD ONE (09:49)
[2024-01-17 09:51] LABS: BASO % 0.5 % (0.0-1.0); EOS # 0.7 10^3/uL (0.0-0.5); EOS % 8.8 % (0.0-3.0); HEMATOCRIT 36.8 % (36.0-47.0); LYMPH # 2.1 10^3/uL (1.5-5.0); LYMPH % 25.7 % (24.0-44.0); MEAN CORPUSCULAR HGB CONC 32.6 g/dl (32.0-36.5); MEAN CORPUSCULAR VOLUME 85.8 fl (80.0-96.0); MONO # 0.3 10^3/uL (0.0-0.8); MONO % 4.1 % (2.0-8.0); NEUTROPHILS # 5.1 10^3/uL (1.5-8.5); NEUTROPHILS % 60.7 % (36.0-66.0); PLATELET COUNT, AUTOMATED 382 10^3/uL (150-450); RED BLOOD COUNT 4.29 10^6/uL (4.00-5.40); WHITE BLOOD COUNT 8.3 10^3/uL (4.0-10.0)
[2024-01-17 09:56] LABS: ERYTHROCYTE SEDIMENTATION RATE 25 mm/hr (0-20)
[2024-01-17 10:17] VITALS: BP 123/75; TEMP 96.9; O2SAT 95
[2024-01-17 10:23] LABS: HCG, SERUM QUALITATIVE NEGATIVE (NEGATIVE)
[2024-01-17 10:25] LABS: BLOOD UREA NITROGEN 17 MG/DL (9-23); CALCIUM LEVEL 9.2 MG/DL (8.5-10.1); CARBON DIOXIDE LEVEL 28 MMOL/L (20-31); CHLORIDE LEVEL 107 MMOL/L (98-107); CREATININE FOR GFR 0.83 MG/DL (0.55-1.30); GLOMERULAR FILTRATION RATE > 60.0 (>60); GLUCOSE, FASTING 96 MG/DL (60-100); POTASSIUM SERUM 4.3 MMOL/L (3.5-5.1); SODIUM LEVEL 139 MMOL/L (136-145)
[2024-01-17] MEDS ORDERED: MEDR4PAK PO (10:37)
[2024-01-17] MEDS ORDERED: LIDO5DIS41 TOP (10:37)
[2024-01-17] MEDS ORDERED: VALI5TAB PO (10:37)
== END 2024-01-17 10:53 | disposition home or self-care (01) ==
LOC: M ED 08:55
DX: S33.5XXA Sprain of ligaments of lumbar spine, initial encounter (principal); Y92.9 Unspecified place or not applicable; Y93.9 Activity, unspecified; Y99.9 Unspecified external cause status; I10 Essential (primary) hypertension; E28.2 Polycystic ovarian syndrome; F41.9 Anxiety disorder, unspecified; F32.A Depression, unspecified; F10.10 Alcohol abuse, uncomplicated; Z79.1 Long term (current) use of non-steroidal anti-inflammatories (NSAID); Z79.51 Long term (current) use of inhaled steroids; Z79.84 Long term (current) use of oral hypoglycemic drugs; Z79.899 Other long term (current) drug therapy
CPT/HCPCS: 80048; 84703; 85025; 85652; 86140; 96372; 99283; J2919

== ENCOUNTER 2024-06-30 13:56 | Emergency (ER) | payer BC, SELFPAY ==
[~2024-06-30] VITALS: Ht 160 cm; Wt 106.9 kg
[~2024-06-30 13:56] MED LIST changes: +LIDO5DIS41 TOP; +MEDR4PAK PO; +VALI5TAB PO
[2024-06-30 16:22] LABS: BASO # 0.1 10^3/uL (0.0-0.2); BASO % 0.5 % (0.0-1.0); EOS # 0.6 10^3/uL (0.0-0.5); EOS % 6.1 % (0.0-3.0); HEMOGLOBIN 14.6 g/dl (12.0-15.5); LYMPH # 3.2 10^3/uL (1.5-5.0); LYMPH % 31.1 % (24.0-44.0); MEAN CORPUSCULAR HEMOGLOBIN 27.6 pg (27.0-33.0); MEAN CORPUSCULAR HGB CONC 33.2 g/dl (32.0-36.5); MEAN CORPUSCULAR VOLUME 83.2 fl (80.0-96.0); MONO # 0.5 10^3/uL (0.0-0.8); NEUTROPHILS % 57.1 % (36.0-66.0); PLATELET COUNT, AUTOMATED 435 10^3/uL (150-450); RED BLOOD COUNT 5.29 10^6/uL (4.00-5.40); WHITE BLOOD COUNT 10.4 10^3/uL (4.0-10.0)
[2024-06-30] MEDS: NS (Normal Saline) 0.9% 1,000 ML IV ONE (16:23)
[2024-06-30] MEDS ORDERED: RISP0.5T82 (16:45)
[2024-06-30] MEDS ORDERED: BRIN10TA4 (16:45)
[2024-06-30] MEDS ORDERED: SEMA1PEN2 (16:45)
[2024-06-30] MEDS ORDERED: DROS4TAB (16:45)
[2024-06-30] MEDS ORDERED: MM S100C PO (16:49)
[2024-06-30] MEDS ORDERED: MIRA3350 PO (16:49)
[2024-06-30] MEDS ORDERED: ISOVUE-370 76% 100ML VIAL As Ordered ONE (16:53)
[2024-06-30 16:54] LABS: HCG, SERUM QUALITATIVE NEGATIVE (NEGATIVE)
[2024-06-30 16:58] LABS: LIPASE 39 U/L (12-53)
[2024-06-30 17:16] LABS: ALBUMIN 4.3 G/DL (3.2-5.2); ALKALINE PHOSPHATASE 69 U/L (35-104); ALT/SGPT 24 U/L (7.0-40); BILIRUBIN,DIRECT < 0.1 MG/DL (<0.4); BILIRUBIN,TOTAL 0.3 MG/DL (0.3-1.2); BLOOD UREA NITROGEN 16 MG/DL (9-23); CARBON DIOXIDE LEVEL 24 MMOL/L (20-31); CHLORIDE LEVEL 101 MMOL/L (98-107); CREATININE FOR GFR 0.79 MG/DL (0.55-1.30); GLOMERULAR FILTRATION RATE > 60.0 (>60); GLUCOSE, FASTING 95 MG/DL (60-100); POTASSIUM SERUM 4.9 MMOL/L (3.5-5.1); SODIUM LEVEL 136 MMOL/L (136-145); TOTAL PROTEIN 8.5 G/DL (5.7-8.2)
[2024-06-30 17:17] LABS: AST/SGOT 18 U/L (<34)
[2024-06-30 17:20] LABS: KETONE, URINE AUTO RFX NEGATIVE (NEGATIVE); LEUKOCYTE ESTERASE UR AUTO RFX TRACE (NEGATIVE); MUCUS, URINE RFX SMALL (NEGATIVE); NITRITE, URINE AUTO RFX NEGATIVE (NEGATIVE); RBC, URINE AUTO RFX 2 /HPF (0-3); SQUAM EPITHELIAL CELL UR AURFX 20 /HPF (0-6); WBC, URINE AUTO RFX 6 /HPF (0-3)
[2024-06-30] MEDS ORDERED: ONDA-282 PO (18:25)
[2024-06-30] MEDS: MAGNESIUM CITRATE 300ML BTL PO ONE (18:25)
[2024-06-30 18:40] VITALS: BP 137/89; TEMP 97.1; O2SAT 98
== END 2024-06-30 18:41 | disposition home or self-care (01) ==
LOC: M ED 13:56
DX: R11.10 Vomiting, unspecified (principal); R10.9 Unspecified abdominal pain; E11.9 Type 2 diabetes mellitus without complications; K21.9 Gastro-esophageal reflux disease without esophagitis; I10 Essential (primary) hypertension; G47.33 Obstructive sleep apnea (adult) (pediatric); F41.9 Anxiety disorder, unspecified; F32.A Depression, unspecified; Z79.1 Long term (current) use of non-steroidal anti-inflammatories (NSAID); Z79.51 Long term (current) use of inhaled steroids; Z79.84 Long term (current) use of oral hypoglycemic drugs; Z79.4 Long term (current) use of insulin; Z79.899 Other long term (current) drug therapy
CPT/HCPCS: 74018; 74177; 80047; 80048; 80076; 81001; 83690; 84703; 85025; 87088; 87186; 96360; 96361; 99284; Q9967